=== PATIENT | female | born 1960 | race Two or more races ===

== ENCOUNTER 2020-07-11 14:34 | Emergency (ER) | payer MEDICARE ==
[~2020-07-11] VITALS: Ht 152.4 cm; Wt 70.0 kg
--- NOTE | 2020-07-11 15:36 | NUR ---
PT IN BED WITH NO SIGNS OR SYMPTOMS OF ACUTE DISTRESS NOTED RESPIRATIONS EVEN AND UNLABORED. PT ON [employer] P[employer], WITH BED RAILS UP BILATERALLY AND CALL LIGHT WITHIN REACH. PT CALM AND COOPERATIVE, WITH DAUGHTER IN LAW AT BEDSIDE. MED IN TO ASSESS. PT DENIES PAIN OR DISCOMFORT AT THIS TIME. LIGHTS DOWN IN ROOM FOR COMFORT
[2020-07-11 15:50] LABS: BASOPHILS % (AUTO) 1 % (0-1); EOSINOPHILS % (AUTO) 0 % (1-7); LYMPHOCYTES % (AUTO) 30 % (22-44); MEAN CORPUSCULAR HEMOGLOBIN 32.5 pg (27.0-34.8); MEAN CORPUSCULAR HGB CONC 34.6 g/dL (32.4-35.8); MEAN PLATELET VOLUME 9.2 fL (7.4-10.4); MONOCYTES % (AUTO) 4 % (2-9); NEUTROPHILS % (AUTO) 65 % (42-75); PLATELET COUNT 288 x10^3/uL (130-400); RED BLOOD COUNT 5.15 x10^6/uL (3.82-5.3); RED CELL DISTRIBUTION WIDTH 12.9 % (9.6-15.2)
[2020-07-11 15:57] LABS: MD NO
[2020-07-11] MEDS ORDERED: LORazepam 1MG TABLET ONE (15:58)
[2020-07-11 16:00] LABS: ALBUMIN 4.5 g/dL (3.4-5.0); ANION GAP 13 mmol/L (5-15); CALCIUM 9.4 mg/dL (8.5-10.1); CHLORIDE 103 mmol/L (98-107); CREATININE 0.67 mg/dL (0.55-1.02)
[2020-07-11] MEDS ORDERED: LORazepam 1MG TABLET PO ONE (16:00)
[2020-07-11 16:41] LABS: MICROSCOPIC NOT IND
--- NOTE | 2020-07-11 16:42 | NUR ---
PT IN BED WITH NO SIGNS OR SYMPTOMS OF ACUTE DISTRESS NOTED RESPIRATIONS EVEN AND UNLABORED DENIES PAIN OR DISCOMFORT SATTING WELL ON ROOM AIR. DAUGHTER IN LAW AT BEDSIDE. PT AND FAMILY DENIES NEED AT THIS TIME. BED RAILS UP BILATERALLY, CALL LIGHT WITHIN REACH, LIGHTS OFF IN ROOM FOR COMFORT.
[2020-07-11 18:48] VITALS: BP 158/80
== END 2020-07-11 18:53 | disposition home or self-care (01) ==
LOC: ED 18:45
DX: I10 Essential (primary) hypertension (principal); R07.89 Other chest pain; E78.00 Pure hypercholesterolemia, unspecified
CPT/HCPCS: 71045; 80048; 81003; 82040; 82962; 85025; 93005; 99285

== ENCOUNTER 2021-01-04 10:02 | Outpatient (CLI) | payer MEDICARE | END 2021-01-04 23:59 | disposition home or self-care (01) | LOC: CFH 10:02 | PROVIDERS: ATTEND Nurse Practitioner Family | DX: S06.5X9A Traumatic subdural hemorrhage with loss of consciousness of unspecified duration, initial encounter (principal); G44.319 Acute post-traumatic headache, not intractable; H70.11 Chronic mastoiditis, right ear; W19.XXXA Unspecified fall, initial encounter; Y93.89 Activity, other specified; Y92.89 Other specified places as the place of occurrence of the external cause; Y99.8 Other external cause status | CPT/HCPCS: 70450 ==